=== PATIENT | female | born 1985 | race Caucasian/White ===

== ENCOUNTER 2022-01-13 13:14 | Inpatient (IN) ==
[2022-01-13] MEDS ORDERED: Buffered Lidocaine 1% SYRIN 1 ml INTRADERM ONE (14:20)
[2022-01-13] MEDS ORDERED: Lactated Ringers 1000 ml BAG 1,000 ML IV ONE (14:20)
[2022-01-14] MEDS: Oxytocin in LR 20,000 MILLI.UNIT/1,000 ML BAG IV SCH (09:57)
[2022-01-14 09:59] LABS: Hematocrit 43 % (35-47); Mean Corpuscular HGB Conc 35 g/dL (31-36); Mean Corpuscular Hemoglobin 31 pg (27-31); Mean Corpuscular Volume 88 fL (80-97); Mean Platelet Volume 8.9 fL (7.4-10.4); Platelet Count 274 10^3/uL (150-450); Red Blood Count 4.89 10^6 /uL (3.70-4.87); Red Cell Distribution Width 13 % (10-15); White Blood Count 15.9 10^3/uL (3.5-10.8)
[2022-01-14] MEDS: Lactated Ringers 1000 ml BAG 1,000 ML IV SCH (12:01)
[2022-01-14 12:57] LABS: Urine Benzodiazepine Screen None Detected (None Detect); Urine Cannabinoids Screen None Detected (None Detect); Urine Opiates Screen None Detected (None Detect)
[2022-01-14 13:25] LABS: Urine Appearance Clear; Urine Bilirubin Negative (Negative); Urine Blood 3+ (Large) (Negative); Urine Color Yellow; Urine Glucose Negative (Negative); Urine Ketones Negative (Negative); Urine Nitrite Negative (Negative); Urine Protein 1+ (30 mg/dL) (Negative); Urine Urobilinogen 0.2 (Negative) (Negative)
[2022-01-14 13:31] LABS: Urine Bacteria 1+ (Absent); Urine Red Blood Cell 3+(>10/hpf) (Absent); Urine Squamous Epithelial Cell Present (Absent); Urine White Blood Cell 1+(6-10/hpf) (Absent)
[2022-01-14] MEDS ORDERED: Calcium Carb (TUMS) 500 mg CHEW TAB ONE (21:20)
[2022-01-14] MEDS ORDERED: OBEPIDURAL (200 ML) 200 ML EPIDURAL ONE (23:29)
[2022-01-14] MEDS ORDERED: Lidocaine 1% w EPI 1:200,000 SDV 30 ML VIAL ONE (23:29)
[2022-01-15] MEDS: OBEPIDURAL (200 ML) 200 ML EPIDURAL SCH ×2 (00:30→14:00)
[2022-01-15] MEDS ORDERED: Lactated Ringers 1000 ml BAG 1,000 ML IV ONE (01:14)
[2022-01-15] MEDS ORDERED: Phenylephrine 40 mcg/mL 10mL (400mcg) SYRINGE IV PUSH PRN ×2 (01:14)
[2022-01-15] MEDS ORDERED: Sodium Citrate/Citric Acid LIQ 15 ML UDC PO PRN (01:14)
[2022-01-15] MEDS ORDERED: Lactated Ringers 1000 ml BAG 1,000 ML IV SCH (02:00)
[2022-01-15 03:14] LABS: Urine Appearance Clear; Urine Bilirubin Negative (Negative); Urine Blood 2+ (Negative); Urine Color Yellow; Urine Glucose Negative (Negative); Urine Ketones 1+ (Negative); Urine Nitrite Negative (Negative); Urine Protein Negative (Negative); Urine Specific Gravity 1.004 (1.002-1.030); Urine Urobilinogen Negative (Negative)
[2022-01-15 03:17] LABS: Urine Bacteria Absent (Absent); Urine Red Blood Cell Trace(0-2/hpf) (Absent); Urine White Blood Cell Trace(0-5/hpf) (Absent)
[2022-01-15] MEDS: Lactated Ringers 1000 ml BAG 1,000 ML IV SCH (09:40)
[2022-01-15] MEDS: Oxytocin in LR 20,000 MILLI.UNIT/1,000 ML BAG IV SCH (17:06)
[2022-01-15] MEDS ORDERED: Witch Hazel PAD JAR ONE (20:19)
[2022-01-15] MEDS ORDERED: Witch Hazel PAD JAR TOPICAL PRN (23:23)
[2022-01-15] MEDS ORDERED: Dibucaine 1% OINT 28.35 GM TUBE PR PRN (23:23)
[2022-01-15] MEDS ORDERED: Glycerin ADULT 2.4 gm SUPP PR PRN (23:23)
[2022-01-15] MEDS ORDERED: Oxytocin in LR 20,000 MILLI.UNIT/1,000 ML BAG IV SCH (23:30)
[2022-01-16 06:54] LABS: Hematocrit 33 % (35-47); Hemoglobin 11.2 g/dL (12.0-16.0); Mean Corpuscular HGB Conc 34 g/dL (31-36); Mean Corpuscular Hemoglobin 31 pg (27-31); Mean Corpuscular Volume 92 fL (80-97); Mean Platelet Volume 8.3 fL (7.4-10.4); Platelet Count 184 10^3/uL (150-450); Red Blood Count 3.59 10^6 /uL (3.70-4.87); Red Cell Distribution Width 12 % (10-15); White Blood Count 22.5 10^3/uL (3.5-10.8)
[2022-01-16 07:20] LABS: ABS Basophils 0.1 10^3/ul (0-0.2); ABS Lymphocytes 1.6 10^3/ul (1.0-4.8); ABS Monocytes 2.1 10^3/ul (0-0.8); ABS Neutrophils 18.7 10^3/ul (1.5-7.7); Eosinophil % 0.1 %
[2022-01-16 07:42] VITALS: BP 95/56
[2022-01-16] MEDS ORDERED: Petroleum Jelly 1.75 Oz (small jar) TOPICAL ONE (10:06)
== END 2022-01-16 14:14 | disposition home or self-care (01) | DRG 560 ==
LOC: MCHOBOUT 13:14 → MCHOB 15:11
PROVIDERS: ADMIT Midwife; ATTEND Midwife

== ENCOUNTER 2023-06-12 17:16 | Inpatient (IN) ==
[2023-06-12] MEDS ORDERED: Lidocaine 1% VIAL 10 MG/ML 30 ML VIAL INJ PRN (18:39)
[2023-06-12 20:47] LABS: Urine Benzodiazepine Screen None Detected (None Detect); Urine Cannabinoids Screen None Detected (None Detect); Urine Opiates Screen None Detected (None Detect)
[2023-06-13] MEDS: Dibucaine 1% OINT 28.35 GM TUBE PR PRN (03:24)
[2023-06-13] MEDS: Witch Hazel PAD JAR TOPICAL PRN (03:24)
[2023-06-14 06:42] LABS: ABS Eosinophils 0.2 10^3/uL (0.0-0.5); ABS Lymphocytes 2.8 10^3/uL (1.0-4.8); ABS Monocytes 1.1 10^3/uL (0.0-0.9); ABS Nucleated RBC 0.01 10^3/ul; Eosinophil % 1.9 %; Hematocrit 39.7 % (35-45); Hemoglobin 13.8 g/dL (11.5-14.3); Lymphocyte % 27.3 %; Mean Corpuscular Hemoglobin 31.5 pg (27-33); Mean Corpuscular Hgb Conc 34.7 g/dL (31-36); Mean Corpuscular Volume 90.9 fL (80-97); Mean Platelet Volume 7.9 fL (7.5-11.2); Platelet Count 236 10^3/uL (150-450); Red Blood Count 4.37 10^6/uL (3.63-4.92); Red Cell Distribution Width 13.4 % (12-17); White Blood Count 10.2 10^3/uL (3.8-11.8)
[2023-06-14 08:18] VITALS: BP 82/40
== END 2023-06-14 11:41 | disposition home or self-care (01) | DRG 560 ==
LOC: MCHOBOUT 17:16 → MCHOB 18:40
PROVIDERS: ADMIT Midwife; ATTEND Midwife